=== PATIENT | female | born 1975 | race Caucasian/White ===

== ENCOUNTER 2021-05-08 16:17 | Outpatient (CLI) | payer MEDICARE, SELFPAY ==
[2021-05-08 16:51] LABS: Basophils % 0.1 %; Hematocrit 42.7 % (37.0-47.0); Lymphocytes # 2.6 10^3/uL (0.8-4.8); Mean Corpuscular HGB Conc 32.8 g/dL (30.0-36.0); Mean Corpuscular Hemoglobin 30.2 pg (28.0-34.0); Mean Platelet Volume 10.9 fL (7.4-10.4); Monocytes # 0.6 10^3/uL (0.2-0.9); Monocytes % 7.7 %; Neutrophils # 3.99 10^3/uL (1.8-7.7); Neutrophils % 56.1 %; Nucleated Red Blood Cells % 0 %; Platelet Count 177 10^3/cmm (130-400); Red Blood Count 4.64 10^6/uL (4.1-5.3); Red Cell Distribution Width 12.6 % (12.1-15.1); White Blood Count 7.1 10^3/uL (4.0-10.0)
[2021-05-08 17:19] LABS: Alanine Aminotransferase 9 U/L (0-33); Albumin Level 4.4 g/dL (3.5-5.2); Alkaline Phosphatase 60 IU/L (35-105); Anion Gap 14.4 (5-19); Aspartate Amino Transferase 11 U/L (0-32); Blood Urea Nitrogen 10 mg/dL (6-20); Calcium 9.7 mg/dL (8.5-10.5); Carbon Dioxide 28 mmol/L (22-29); Chloride 99 mmol/L (98-107); Free T4 Free Thyroxine 1.02 ng/dL (0.82-1.77); Globulin 2.7 g/dL (1.3-4.6); Glomerular Filtration Rate 133.4 mL/min (90-130); Glucose 88 mg/dL (65-115); Osmolality Calculated 282 mOsm/kg (285-295); Potassium 4.4 mmol/L (3.5-5.1); Sodium 137 mmol/L (136-145); Thyroid Stimulating Hormone 0.99 uIU/mL (0.27-4.20); Total Bilirubin 0.3 mg/dL (0.15-1.2); Total Protein 7.1 g/dL (6.6-8.7)
== END 2021-05-08 16:18 | disposition home or self-care (01) ==
LOC: LAB 16:20
PROVIDERS: Family Medicine; Family Provider Family Medicine; PCP Family Medicine; Visit Provider Neurological Surgery
DX: R42 Dizziness and giddiness (principal); R53.83 Other fatigue; R55 Syncope and collapse; Z76.89 Persons encountering health services in other specified circumstances
CPT/HCPCS: 80053; 84439; 84443; 85025

== ENCOUNTER 2021-11-16 19:42 | Emergency (ER) | payer MEDICARE, MEDICAID, SELFPAY ==
[2021-11-16 19:52] VITALS: BP 144/81; PULSE 82; RESP 16; TEMP 36.7; O2SAT 98; BMI 241.7
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
[2021-11-16] MEDS: petrolatum oint Pkt 5 gm 1 APPLIC TOPICAL (22:03)
== END 2021-11-16 22:09 | disposition home or self-care (01) ==
PROVIDERS: Emergency Provider Nurse Practitioner Family; PCP Family Medicine
DX: T20.16XA Burn of first degree of forehead and cheek, initial encounter (principal); T20.12XA Burn of first degree of lip(s), initial encounter; X08.8XXA Exposure to other specified smoke, fire and flames, initial encounter; F17.210 Nicotine dependence, cigarettes, uncomplicated
CPT/HCPCS: 99283

== ENCOUNTER 2022-01-15 07:33 | Outpatient (CLI) | payer MEDICARE, MEDICAID, SELFPAY ==
--- NOTE | 2022-01-15 07:40 | MM_ITS ---
WS: [id number] Bilateral screening 3D tomosynthesis digital mammogram, 01/15/2022 Clinical Data: SCREENING Comparison: 11/26/2018, 11/07/2018, 01/06/2013, 06/28/2004. Findings: The breast parenchymal pattern shows fibroglandular tissue. No spiculated masses or clustered calcifi cations are seen. There are no secondary signs of carcinoma. MM/[place] [id number] Impression: 1. Negative bilateral mammogram unchanged. 2. Recommend annual screening mammograms. BIRADS: 1-Negative FOLLOW UP: 1 Year Follow-up The CAD truckload checker was used.
== END 2022-01-15 07:34 | disposition home or self-care (01) ==
LOC: RAD 07:33
PROVIDERS: PCP Family Medicine; Visit Provider Family Medicine
DX: Z12.31 Encounter for screening mammogram for malignant neoplasm of breast (principal)
CPT/HCPCS: 77063; 77067

== ENCOUNTER 2022-04-17 12:55 | Outpatient (CLI) | payer MEDICARE, MEDICAID, SELFPAY ==
--- NOTE | 2022-04-17 13:12 | XRR_ITS ---
PROCEDURE INFORMATION: Exam: XR Chest Exam date and time: 04/17/2022 1:27 PM Age: 46 years old Clinical indication: Other: Abnormal weight loss; Prior surgery; Surgery type: Hystero, spinal stimulator TECHNIQUE: Imaging protocol: Radiologic exam of the chest. Views: 2 views. COMPARISON: CR XR chest 1V [id number] 07/16/2017 7:57 PM FINDINGS: Tubes, catheters and devices: There is a neural stimulatory device with electrode tips project over the midthoracic spinal canal unchanged. Lungs: Unremarkable. No consolidation. Pleural spaces: Unremarkable. No pleural effusion. No pneumothorax. Heart/Mediastinum: Unremarkable. No cardiomegaly. Bones/joints: Mild degenerative changes are present in the midthoracic spine unchanged. XR/XR chest 2V* [id number] IMPRESSION: Stable chest. No active disease.
== END 2022-04-17 12:56 | disposition home or self-care (01) ==
LOC: RAD 12:58
PROVIDERS: PCP Family Medicine; Visit Provider Family Medicine
DX: R53.83 Other fatigue (principal); R63.4 Abnormal weight loss
CPT/HCPCS: 71046; 80053; 84439; 84443; 84481; 85025; 85651; 86140

== ENCOUNTER 2022-10-01 12:29 | Emergency (ER) | payer MEDICARE, MEDICAID, SELFPAY ==
[2022-10-01 12:42] VITALS: BP 149/88; PULSE 84; RESP 16; TEMP 36.7; O2SAT 99; BMI 20.7
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
[2022-10-01] MEDS: tetanus-dipt-pertussis 0.5 mL SDV IM (13:59)
[2022-10-01] MEDS: neomycin-poly-dex Op 5 mL Btl 2 DROP EYE-RIGHT (14:01)
[2022-10-01] MEDS: tetracaine 0.5% Op Soln 4 mL Btl 1 DROP EYE-RIGHT (14:03)
[2022-10-01] MEDS: eye irrigation 30 mL Btl EYE-RIGHT (14:03)
[2022-10-01] MEDS: fluorescein 1 mg Strip EYE-RIGHT (14:03)
== END 2022-10-01 14:06 | disposition home or self-care (01) ==
PROVIDERS: Emergency Provider Physician Assistant; PCP Family Medicine
DX: H11.421 Conjunctival edema, right eye (principal); Z79.899 Other long term (current) drug therapy
CPT/HCPCS: 90471; 90715; 99283

== ENCOUNTER 2023-01-07 15:47 | Outpatient (CLI) | payer MEDICARE, SELFPAY ==
--- NOTE | 2023-01-07 15:55 | XRR_ITS ---
PROCEDURE INFORMATION: Exam: XR Right Hand Exam date and time: 01/07/2023 3:58 PM Age: 47 years old Clinical indication: Pain; Finger(s); Right; Additional info: Right thumb pain TECHNIQUE: Imaging protocol: Radiologic exam of the right hand. Views: 1 or 2 views. COMPARISON: No relevant prior studies available. FINDINGS: Bones/joints: Mild 1st carpometacarpal joint osteoarthritis. Soft tissues: Normal. XR/XR hand RT 2V [id number] IMPRESSION: Mild 1st carpometacarpal joint osteoarthritis.
== END 2023-01-07 15:48 | disposition home or self-care (01) ==
PROVIDERS: PCP Family Medicine; Visit Provider Family Medicine
DX: S69.91XA Unspecified injury of right wrist, hand and finger(s), initial encounter (principal); X58.XXXA Exposure to other specified factors, initial encounter; M18.9 Osteoarthritis of first carpometacarpal joint, unspecified; M79.644 Pain in right finger(s)
CPT/HCPCS: 73120

== ENCOUNTER → 2023-07-26 15:20 | Outpatient (BNVA) | payer MEDICARE, SELFPAY | PROVIDERS: PCP Family Medicine; Visit Provider Emergency Medicine | DX: S49.91XA Unspecified injury of right shoulder and upper arm, initial encounter (principal); X58.XXXA Exposure to other specified factors, initial encounter | CPT/HCPCS: 73030 ==

== ENCOUNTER → 2024-02-12 13:40 | Outpatient (BNVA) | payer MEDICARE, SELFPAY | PROVIDERS: PCP Family Medicine; Visit Provider Family Medicine | DX: Z12.4 Encounter for screening for malignant neoplasm of cervix (principal) | CPT/HCPCS: 87624 ==

== ENCOUNTER → 2024-11-23 13:00 | Outpatient (BNVA) | payer MEDICARE, SELFPAY | PROVIDERS: PCP Family Medicine; Visit Provider Family Medicine | DX: R56.9 Unspecified convulsions (principal); F41.1 Generalized anxiety disorder; E78.2 Mixed hyperlipidemia; G25.81 Restless legs syndrome; R79.89 Other specified abnormal findings of blood chemistry | CPT/HCPCS: 80053; 80061; 82306; 82607; 82728; 82746; 83540; 84146; 84207; 84439; 84443; 85025 ==

== ENCOUNTER 2024-12-11 09:03 | Emergency (ER) | payer MEDICARE, SELFPAY ==
--- NOTE | 2024-12-11 09:02 | ECG_ITS ---
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 Measurements Intervals [place] Rate: 81 P: 247 DC: 366 QRS: 79 QRSD: 76 T: 63 QT: 374 QTc: 437 Interpretive Statements Regular supraventricular rhythm possibly sinus Heavy baseline artifacts; Need to repeat the study. Further interpretation is not possible ABNORMAL RHYTHM ECG No previous ECG available for comparison Electronically Signed On 12-12-2024 14:36:50 CDT by Didier Reid M.D. [email or web address] [id number]
[2024-12-11 09:04] VITALS: BP 104/79; PULSE 90; RESP 18; TEMP 37.3; O2SAT 95; BMI 19.2
--- NOTE | 2024-12-11 09:04 | XR_ITS ---
WS: [id number] XR chest 1V portable [id number] REASON FOR EXAM: chest pain FINDINGS: Dorsal column stimulator leads present T7-T8. The heart and the mediastinum are within normal limits. Compared to the most recent examination of 04/17/2022 there are increased reticular interstitial lung opacities. No significant pulmonary venous congestion. Due to the length of the interval on the previous examination the chronicity of these findings is uncertain. XR/XR chest 1V portable [id number] IMPRESSION: Interstitial opacities in both lower lungs of unknown known chronicity as above . These findings could be chronic, however, potentially this could represent an acute or subacute process. With lack of cardiomegaly and pulmonary venous dist ention a pneumonitis would be more likely. Early congestive failure would be a second consideration.
--- NOTE | 2024-12-11 09:12 | ED_ITS ---
HPI - Chest Pain 2 General: Chief Complaint: Chest Pain Stated Complaint: chest pain Time Seen by Provider: 12/11/24 09:04 Source: patient Mode of arrival: ambulatory Limitations: no limitations History of Present Illness: Patient is a 49-year-old female here via EMS for evaluation of chest pain. Patient states she has been sick recently with URI-like symptoms and states she always gets bronchitis following a cold . She states she has had increased cough and sputum production. She states she chronically takes Suboxone and was at the clinic today when she began developing chest pain. She feels like pain is worse with inhalation. She states she is not having any discomfort if she is not breathing. Pain is also worse with coughing. She is not having any abdominal or back pain. She is an everyday smoker. No other PMH. No fevers. MD complaint: chest pain Onset (ago): hour(s) Timing of current episode: constant Onset: during rest Pain location: substernal Pain radiation: none Severity: moderate Relieving factors: other (holding breath) Exacerbating factors: inspiration and movement Context: recent illness (URI like symptoms) Associated symptoms: Deny abdominal pain, dyspnea, fever(s), nausea, palpitations, syncope or vomiting Treatment prior to arrival: none Risk Factors: Coronary artery disease risk factors: smoking history Thoracic aortic dissection risk factors: none Related Data Home Medications ?Medication ?Instructions ?Recorded ?Confirmed buprenorphine 2 mg-naloxone 0.5 mg 1 film buccal DAILY 05/08/21 11/23/24 sublingual film (Suboxone) Previous Rx's ?Medication ?Instructions ?Recorded albuterol sulfate 90 mcg/actuation See Rx Instructions .Route 06/28/22 aerosol inhaler .COMPLEX #8.5 ea salmeterol 50 mcg/dose blister See Rx Instructions .Ro dwain 12/11/22 powder for inhalation (Serevent .COMPLEX #60 ea Diskus) clindamycin phosphate 1 % topical See Rx Instructions .Route 01/09/23 gel, once daily .COMPLEX #75 mL ibuprofen 800 mg tablet 800 mg PO Q8H PRN pain #60 t abs 07/26/23 carbidopa 25 mg-levodopa 100 mg See Rx Instructions .R oute 02/13/24 tablet .COMPLEX #90 tabs venlafaxine 150 mg 150 mg PO DAILY #90 caps 08/01 capsule,extended release 24 hr (Effexor XR) cyclobenzaprine 10 mg tablet See Rx Instructions .Rout e 11/23/24 .COMPLEX #270 tabs mirtazapine 15 mg tablet See Rx Instructions .Route 0 11/23/24 .COMPLEX #90 tabs Allergies Allergy/AdvReac Type Severity Reaction Status Date / Time ciprofloxacin (From Cipro) Allergy Unconscious Verified 11/23/24 13:10 Sulfa (Sulfonamide Allergy ALGY-Rash Verified 11/23/24 13:10 Antibiotics) Review of Systems 2 Const: Denies: fever(s), chills, body aches, fatigue or malaise Eyes: Denies: change in vision or blurry vision ENMT: Reports: nasal discharge and nasal congestion; Denies: throat pain, odynophagia or ear or mastoid pain Card: Reports: chest pain; Denies: palpitations, irregular heart rhythm, lightheadedness, syncope or dyspnea on exertion Resp: Reports: productive cough, pain on inspiration and chest congestion; Denies: dyspnea, wheezing or hemoptysis GI: Denies: abdominal pain, nausea, vomiting, heartburn or diarrhea : Denies: flank pain, dysuria or hematuria Musc: Denies: neck pain, back pain, extremity pain, extremity swelling, joint pain, joint swelling or joint redness Skin/Breast: Denies: rash Neuro: Denies: headache(s), numbness in extremities, weakness in extremities, sensory changes or dizziness PFSH ED 2 PFSH: Medical History No pertinent family history Social History Smoking and tobacco/nicotine status: current every day tobacco/nicotine user cigarettes Packs smoked per day: 2 Years cigarettes smoked: 33 Quit status (tobacco/nicotine): has tried quititng Number of times tried to quit tobacco: 10 Second hand smoke exposure: Yes Alcohol intake: current Alcohol intake frequency: few times a week Alcohol type: hard liquor and other Substance/Drug Use: current Substance/Drug use frequency: daily Other substance/drug use details: For pain. Adopted: No Female Reproductive History: Spontaneous abortions: No Physical Exam 2 Const: COMMON NORMALS: average body habitus, patient oriented x3, no limitations, healthy appearing, alert and well nourished GENERAL APPEARANCE: cooperative and in distress (appears uncomfortable) O RIENTATION/CONSCIOUSNESS: Yes awake, Yes oriented to person, Yes oriented to place and Yes oriented to time HENMT: COMMON NORMALS: normocephalic and atraumatic HEAD & SCALP: normal to inspection, normocephalic and atraumatic Neck/C-Spine: COMMON NORMALS: full ROM, no lymphadenopathy, supple, no meningeal signs and no JVD Chest: COMMONS NORMALS: normal inspection of the chest OTHER: TTP anterior chest wall Resp: COMMON NORMALS: normal respiratory effort AUSCULTATION: other (course lung sounds improved with coughing-consistent with smoking hx) Cardio: COMMON NORMALS: no JVD, regular rate and regular rhythm RATE: r egular rate RHYTHM: regular rhythm GI: COMMON NORMALS: Normal to inspection, nondistended, normoactive bowel sounds present, Soft to palpation, non-tender, No hepatosplenomegaly present and no masses PALPATION: Yes Soft to palpation and Yes No hepatosplenomegaly present : COMMON NORMALS: Yes no CVA tenderness BLADDER/KIDNEY EXAM: Yes no CVA tenderness Back/Pelvis: COMMON NORMALS: no CVA tenderness and thoracic and lumbar spine normal to inspection Extremity: COMMON NORMALS: normal to inspection, capillary refill normal, no clubbing, cyanosis or edema, no calf tenderness and no pedal edema GENERAL: Y es normal exam except as noted Neuro: GRACIELA COMA SCALE: document GCS findings Graciela coma scale eye opening: Spontaneous Graciela coma scale verbal response: Orientated [place] coma scale motor response: Obey commands Graciela coma scale total score: 15 COMMON NORMALS: patient oriented x3, moves all extremities, no focal motor deficits and no sensory deficits noted SENSORIUM/ORIENTATION: Yes alert, Yes oriented to person, Yes oriented to place and Yes oriented to time MENINGEAL SIGNS: Yes no meningeal signs Skin: COMMON NORMALS: no rashes or lesions noted GENERAL SKIN EXAM: no rashes or lesions noted Course 2 Vital Signs: Vital signs: Vital Signs Temperature 99.1 F 12/11/24 09:04 Pulse Rate 90 12/11/24 09:04 Respiratory Rate 18 12/11/24 09:04 Blood Pressure 104/79 12/11/24 09:04 Pulse Oximetry 95 12/11/24 09:04 Oxygen Delivery Me thod Room Air 12/11/24 09:04 MDM - Chest Pain Medical Decision Making I had went in to speak to patient to update her on labs and her baseline troponin as well as CXR findings. We discussed repeating a 2-hour troponin which she seems to be on board with however shortly after her significant other arrived-she stated she wanted to leave. She states she did not want to stay for any further testing and felt better and wanted to go home. We did discuss the implications and benefits for 2-hour troponin so we could rule out ACS. We discussed CXR findings. She seems to understand and would still like to go home. Return to ED precautions discussed. Medical Records I reviewed the patient's medical records. Lab Data I reviewed the patient's lab results. 12/11/24 08:48 12/11/24 08:48 Radiology Impressions Chest X-Ray 12/11/24 09:04 IMPRESSION: Interstitial opacities in both lower lungs of unknown known chronicity as above. These findings could be chronic, however, potentially this could represent an acute or subacute process. With lack of cardiomegaly and pulmonary venous distention a pneumonitis would be more likely. Early congestive failure would be a second consideration. Laboratory Results WBC 12.57 10^3/uL (3.29-11.43) H 12/11/24 08:48 RBC 4.17 10^6/uL (3.85-5.65) 12/11/24 08:48 Hgb 12.90 g/dL (11.27-16.99) 12/11/24 08:48 Hct 38.9 % (36-47) 12/11/24 08:48 MCV 93.3 fl (85-98) 12/11/24 08:48 MCH 30.9 pg (27-33) 12/11/24 08:48 MCHC 33.2 g/dL (30-55) 12/11/24 08:48 RDW 12.9 % (12.1-15.1) 12/11/24 08:48 Plt Count 209 10^3/cmm (157-399) 12/11/24 08:48 MPV 11.6 fL (7.4-10.4) H 12/11/24 08:48 Neut % (Auto) 78.9 % 12/11/24 08:48 Lymph % (Auto) 12.9 % 12/11/24 08:48 [place] % (Auto) 7.7 % 12/11/24 08:48 Eos % (Auto) 0.0 % 12/11/24 08:48 Baso % (Auto) 0.2 % 12/11/24 08:48 Neut # (Auto) 9.91 10^3/uL (1.8-7.7) H 12/11/24 08:48 Lymph # (Auto) 1.6 10^3/uL (0.8-4.8) 12/11/24 08:48 [place] # (Auto) 1.0 10^3/uL (0.2-0.9) H 12/11/24 08:48 Eos # (Auto) 0.0 10^3/uL (0.0-0.8) 12/11/24 08:48 Baso # (Auto) 0.0 10^3/uL (0.0-0.1) 12/11/24 08:48 Nucleated RBC % (auto) 0 % 12/11/24 08:48 Nucleated RBCs # 0.0 /100WBC 12/11/24 08:48 Sodium 141 mmol/L (136-145) 12/11/24 08:48 Potassium 3.5 mmol/L (3.5-5.1) 12/11/24 08:48 Chloride 99 mmol/L (98-107) 12/11/24 08:48 Carbon Dioxide 27 mmol/L (22-29) 12/11/24 08:48 Anion Gap 18.5 (5-19) 12/11/24 08:48 BUN 6 mg/dL (6-20) 12/11/24 08:48 Creatinine 0.5 mg/dL (0.5-0.9) 12/11/24 08:48 GFR Calculation 131.1 mL/min (90-130) H 12/11/24 08:48 Glucose 90 mg/dL (65-115) 12/11/24 08:48 Calculated Osmolality 289 mOsm/kg (285-295) 12/11/24 08:48 Calcium 9.0 mg/dL (8.5-10.5) 12/11/24 08:48 Total Bilirubin 0.4 mg/dL (0.15-1.2) 12/11/24 08:48 AST 22 U/L (0-32) 12/11/24 08:48 ALT 18 U/L (0-33) 12/11/24 08:48 Alkaline Phosphatase 97 U/L (35-105) 12/11/24 08:48 Troponin T Baseline < 6 ng/L (0-10) 12/11/24 08:48 NT-Pro-B Natriuret Pep 349 pg/mL (0-125) H 12/11/24 08:48 Total Protein 7.6 g/dL (6.6-8.7) 12/11/24 08:48 Albumin 4.1 g/dL (3.5-5.2) 12/11/24 08:48 Globulin 3.5 g/dL (1.3-4.6) 12/11/24 08:48 All radiology interpretation(s) finalized by discharge Discharge Plan Discharge Patient Disposition: Left Against Medical Advice Clinical Impression: Chest pain Qualifiers: Chest pain type: unspecified Qualified Code(s): R07.9 - Chest pain, unspecified Condition: Stable Prescriptions: No Action buprenorphine-naloxone [Suboxone] 2-0.5 mg film 1 film buccal DAILY Rx Instructions: place 1 strip/tab under (each) side of tongue cyclobenzaprine 10 mg tablet See Rx Instructions .ROUTE .COMPLEX Qty: 270 1RF Dose Instruction: TAKE 1 TABLET BY MOUTH 3 TIMES A DAY Rx Instructions: TAKE 1 TABLET BY MOUTH 3 TIMES A DAY mirtazapine 15 mg tablet See Rx Instructions .ROUTE .COMPLEX Qty: 90 1RF Dose Instruction: TAKE 1 TABLET BY MOUTH EVERY DAY Rx Instructions: TAKE 1 TABLET BY MOUTH EVERY DAY ibuprofen 800 mg tablet 800 mg PO Q8H PRN (Reason: pain) Qty: 60 0RF albuterol sulfate 90 mcg/actuation HFA aerosol inhaler See Rx Instructions .ROUTE .COMPLEX Qty: 8.5 2RF Dose Instruction: INHALE 2 PUFFS EVERY 6 HOURS NEEDED FOR SHORTNESS OF BREATH OR WHEEZING Rx Instructions: INHALE 2 PUFFS EVERY 6 HOURS NEEDED FOR SHORTNESS OF BREATH OR WHEEZING Serevent Diskus 50 mcg/dose blister with device See Rx Instructions .ROUTE .COMPLEX Qty: 60 2RF Dose Instruction: TAKE 1 PUFF BY MOUTH TWICE A DAY Rx Instructions: TAKE 1 PUFF BY MOUTH TWICE A DAY clindamycin phosphate 1 % gel, once daily See Rx Instructions .ROUTE .COMPLEX Qty: 75 3RF Dose Instruction: APPLY TO AFFECTED AREA TOPICALLY DAILY Rx Instructions: APPLY TO AFFECTED AREA TOPICALLY DAILY carbidopa-levodopa 25-100 mg tablet See Rx Instructions .ROUTE .COMPLEX Qty: 90 2RF Dose Instruction: TAKE 1 TABLET BY MOUTH EVERY DAY Rx Instructions: TAKE 1 TABLET BY MOUTH EVERY DAY venlafaxine [Effexor XR] 150 mg capsule,extended release 24hr 150 mg PO DAILY Qty: 90 1RF Referrals: Jon Frias DO [Primary Care Provider, [facility]] Print Language: Telugu Coding Level of Care Code ED Rotor Balancer for Chg Fwd Heart Score HEART Score Components History: Slightly Suspicous EKG: Normal Age: 45-64 yrs Risk Factors: 1 or 2 Risk Factors Troponin: Baseline Trop <16 ng/L HEART Score RESULT HEART Score: 2
[2024-12-11 09:17] LABS: Hematocrit 38.9 % (36-47); Hemoglobin 12.90 g/dL (11.27-16.99); Mean Corpuscular HGB Conc 33.2 g/dL (30-55); Mean Corpuscular Hemoglobin 30.9 pg (27-33); Mean Corpuscular Volume 93.3 fl (85-98); Nucleated Red Blood Cells % 0 %; Platelet Count 209 10^3/cmm (157-399); Red Blood Count 4.17 10^6/uL (3.85-5.65); White Blood Count 12.57 10^3/uL (3.29-11.43)
[2024-12-11] MEDS: orphenadrine 30 mg/mL Inj 2 mL 60 MG IVP (09:33)
[2024-12-11 09:36] LABS: Troponin(5th) Baseline < 6 ng/L (0-10)
[2024-12-11 09:42] LABS: Alanine Aminotransferase 18 U/L (0-33); Albumin Level 4.1 g/dL (3.5-5.2); Alkaline Phosphatase 97 U/L (35-105); Aspartate Amino Transferase 22 U/L (0-32); Blood Urea Nitrogen 6 mg/dL (6-20); Calcium 9.0 mg/dL (8.5-10.5); Carbon Dioxide 27 mmol/L (22-29); Chloride 99 mmol/L (98-107); Creatinine Clr Calc Pharmacy 140.5458; Globulin 3.5 g/dL (1.3-4.6); Glucose 90 mg/dL (65-115); Osmolality Calculated 289 mOsm/kg (285-295); Sodium 141 mmol/L (136-145); Total Protein 7.6 g/dL (6.6-8.7)
[2024-12-11 09:43] LABS: Anion Gap 18.5 (5-19); Potassium 3.5 mmol/L (3.5-5.1)
[2024-12-11 10:10] LABS: NT Pro B Type Natriuretic Pept 349 pg/mL (0-125)
[2024-12-11 10:57] LABS: Respiratory Syncytial Virus Ce NEGATIVE (Negative); SARS-CoV-2 PCR NEGATIVE (Negative)
== END 2024-12-11 10:22 | disposition left against medical advice (07) ==
PROVIDERS: Emergency Provider Physician Assistant; PCP Family Medicine
DX: R07.9 Chest pain, unspecified (principal); F17.210 Nicotine dependence, cigarettes, uncomplicated
CPT/HCPCS: 71045; 80053; 83880; 84484; 85025; 87637; 93005; 96374; 96375; 99285; J1885; J2360